=== PATIENT | female | born 1960 | race Caucasian/White ===

== ENCOUNTER 2019-09-23 11:27 | Emergency (ER) | payer MEDICAID ==
[~2019-09-23] VITALS: Ht 154.9 cm; Wt 56.3 kg
[2019-09-23 12:52] VITALS: BP 111/76
[2019-09-23] MEDS ORDERED: HYDROcodone/APAP 5/325 TABLET PO ONE (13:00)
[2019-09-23] MEDS ORDERED: LIDOCAINE-MPF 1%, 5ML INFIL ONE (13:00)
--- NOTE | 2019-09-23 13:05 | NUR ---
TO ROOM FROM LOBBY. NAD.
[2019-09-23] MEDS ORDERED: LIDOCAINE-MPF 1%, 5ML ONE (13:08)
[2019-09-23] MEDS ORDERED: HYDROcodone/APAP 5/325 TABLET ONE (13:09)
[2019-09-23] MEDS ORDERED: KETOROLAC 30 MG/1 ML IM ONE (14:00)
[2019-09-23] MEDS ORDERED: KETOROLAC 30 MG/1 ML ONE (14:24)
== END 2019-09-23 14:56 | disposition home or self-care (01) ==
LOC: ED 14:40
DX: K04.6 Periapical abscess with sinus (principal); K02.9 Dental caries, unspecified; K08.89 Other specified disorders of teeth and supporting structures; R00.0 Tachycardia, unspecified
CPT/HCPCS: 41800; 96372; 99284; J1885; 99283

== ENCOUNTER 2020-08-26 11:57 | Emergency (ER) | payer MEDICAID ==
[~2020-08-26] VITALS: Ht 157.5 cm; Wt 75.0 kg
[2020-08-26 12:16] VITALS: BP 155/109
--- NOTE | 2020-08-26 12:29 | NUR ---
ROOM SECURED, PT UNDRESSED/PLACED IN GOWN. BELONGING BAG PLACED IN SECURE LOCKER. PT PROVIDED URINE SPECIMEN/WALKED TO LAB. SEE TRIAGE. PT CONTRACTS FOR SAFETY AT THIS TIME. PT STATES SHE DOES NOT WANT TO COMMIT SUICIDE RIGHT NOW, HAS PLANS FOR THE WEEKEND AND IS UPSET SHE IS IN THE ER ON A LEGAL HOLD. PER PT, SHE TOLD CW OF PLAN FOR SA AND REGRETS IT NOW. PT STATES TX CURRENTLY WITH TRAZODONE FOR SEVERAL WEEKS AFTER SEEING PMD AT [facility] (DR DUNN). NO OTHER MEDICATIONS ALTHOUGH HAS BEEN ON ANTIDEPRESSANTS IN PAST. PER JUICE GRANADO (HORTICULTURAL FARMWORKER)# [phone] OR MALAIKA BOSWELL [phone]. JUICE STATES BOTH CASEWORKERS ARE WORKING ON GETTING PT HOME AT "[facility]". SITTER AT DOORWAY. BELONGING LIST COMPLETED BY EMT.
--- NOTE | 2020-08-26 13:33 | NUR ---
MEAL TRAY PROVIDED. PT COOPERATIVE WITH CARE/PLEASANT. SITTER AT DOORWAY.
--- NOTE | 2020-08-26 14:08 | NUR ---
BEDSIDE REPORT FROM [facility]. PT RESTING IN BED. NADN. SITTER AT BEDSIDE. SAFTEY PRECAUTIONS IN PLACE.
--- NOTE | 2020-08-26 14:47 | NUR ---
MEL NOBLES TO BEDSIDE FOR EVALUATION
[2020-08-26] MEDS ORDERED: ESCI5TAB7 PO (15:36)
--- NOTE | 2020-08-26 15:39 | NUR ---
med request slip sent per apr to pharmacy. pt to d/c after.
--- NOTE | 2020-08-26 15:54 | NUR ---
Patientgiven discharge instructions and they have confirmed that they understand the instructions. Patients belongings returned to patient. Patient states all belongings present. Patient ambulatory with steady gait. NAD, all questions answered appropriately, denies additional needs at this time. No personal belongings left in room after discharge.
[2020-08-26] MEDS ORDERED: ESCITALOPRAM 10MG TABLET PO ONE (16:00)
== END 2020-08-26 15:55 | disposition home or self-care (01) ==
LOC: ED 15:25
DX: F32.9 Major depressive disorder, single episode, unspecified (principal); R45.851 Suicidal ideations; F17.200 Nicotine dependence, unspecified, uncomplicated
CPT/HCPCS: 99285